=== PATIENT | female | born 1995 | race Caucasian/White ===

== ENCOUNTER → 2019-10-02 12:48 | Outpatient (BNVA) | payer SELFPAY | PROVIDERS: Visit Provider Emergency Medicine | DX: J11.1 Influenza due to unidentified influenza virus with other respiratory manifestations (principal); R11.0 Nausea; Z20.818 Contact with and (suspected) exposure to other bacterial communicable diseases | CPT/HCPCS: 87804 ==

== ENCOUNTER 2019-10-24 22:41 | Inpatient (IN) | payer SELFPAY ==
[2019-10-24 22:47] VITALS: BMI 40.3
[2019-10-24 22:50] VITALS: BP 135/81; PULSE 96; RESP 18; TEMP 36.6; O2SAT 96
[2019-10-25 06:00] VITALS: BP 120/79; PULSE 84; RESP 19; TEMP 36.8; O2SAT 98
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
[2019-10-25 14:00] VITALS: BP 100/69; PULSE 66; RESP 18; TEMP 37.2; O2SAT 100
[2019-10-25 22:00] VITALS: BP 106/65; PULSE 81; RESP 18; TEMP 36.6; O2SAT 98
[2019-10-26 06:00] VITALS: BP 113/74; PULSE 76; RESP 19; TEMP 36.6; O2SAT 99
--- NOTE | 2019-10-26 12:14 | PM.NPN ---
Subjective NPU Subjective: Interval history: Stacy presents continuing to be resistant to medication and reporting that she just wants to make sure that she is all right before she is discharged. We discussed the risks benefits and alternatives of SSRIs and other medications for anxiety and she understood and agreed to proceed as is documented in this note specifically continuing to be resistant to a medication trial. Mental Status Exam MSE Comments: This is an obese white female with adequate dress, grooming and eye contact. No abnormal movements except for psychomotor retardation. Cooperative with exam in no acute distress. Speech was more normal rate and volume. Mood described as a little better, affect subdued. Thought process organized. Thought content: Patient denied any suicidal or homicidal ideations, there were no delusions noted but she endorsed paranoia which was decreasing, she endorsed occasional auditory visual hallucinations. Attention and concentration were intact and memory appeared reliable but none were formally tested. She is alert and oriented x3. Insight and judgment are limited. Vitals/I&O/Wt Last Vital Signs Temp 97.8 F 10/26/19 06:00 Pulse 76 10/26/19 06:00 Resp 19 H 10/26/19 06:00 BP 113/74 10/26/19 06:00 Pulse Ox 99 10/26/19 06:00 Weight last 48 hrs Weight 73.028 kg A&P Additional A&P Information (1) Major depressive disorder: This is a 24-year-old white female with a long history of mental health issues and trauma who presents with reports of worsening depression and anxiety and suicidal thoughts who presents resistant to medication at this time. 1. Continue current medications. 2. Recommend considering as needed medication for anxiety like Inderal. 3. Recommend Lamictal or possible SSRI. 4. Encouraged individual, group and milieu therapy. 5. Continue every 15 minute checks for safety. (2) Borderline personality disorder: (3) Posttraumatic stress disorder: Involuntary Hold Information 96 Hour Hold: 96 Hour Involuntary Admission: No Attestations NPU Medical Necessity Statement*: Inpatient hospitalization is medically necessary and the clinically appropriate intervention at this time. We will offer medications as indicated and adjust as necessary. Likely length of stay 1 to 3 days. 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
[2019-10-26 14:00] VITALS: BP 116/78; PULSE 76; RESP 18; TEMP 36.6; O2SAT 96
--- NOTE | 2019-10-26 20:15 | PC.NURSE ---
Pt offered a prn trazodone, pt refused. pt stated i refuse to take any medications, i told you all that. I'm not here to take medication, i'm here to see Dr Dallas Haynes, he'll give me what i want!
[2019-10-26 20:58] VITALS: BP 129/89; PULSE 83; RESP 22; TEMP 36.7; O2SAT 100
[2019-10-27 06:00] VITALS: BP 100/61; PULSE 86; RESP 16; TEMP 36.6; O2SAT 98
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
[2019-10-27 13:06] VITALS: BP 100/61; PULSE 86; RESP 16; TEMP 36.6; O2SAT 98
== END 2019-10-27 13:55 | disposition home or self-care (01) | DRG 880 ==
PROVIDERS: Admitting Provider Psychiatry & Neurology Psychiatry; Visit Provider Psychiatry & Neurology Psychiatry
DX: F41.8 Other specified anxiety disorders (principal); R45.851 Suicidal ideations; Z91.5 Personal history of self-harm; F60.3 Borderline personality disorder; F43.11 Post-traumatic stress disorder, acute
CPT/HCPCS: 12345

== ENCOUNTER → 2020-04-18 13:44 | Outpatient (BNVA) | payer OTHER, SELFPAY | PROVIDERS: Visit Provider Emergency Medicine | DX: Z20.828 Contact with and (suspected) exposure to other viral communicable diseases (principal); R68.89 Other general symptoms and signs | CPT/HCPCS: 87635 ==

== ENCOUNTER → 2020-05-29 15:32 | Outpatient (BNVA) | payer SELFPAY | PROVIDERS: Visit Provider Emergency Medicine | DX: N92.6 Irregular menstruation, unspecified (principal); Z32.01 Encounter for pregnancy test, result positive | CPT/HCPCS: 81025 ==

== ENCOUNTER 2020-07-18 11:34 | Emergency (ER) | payer MEDICAID, SELFPAY ==
[2020-07-18 11:47] VITALS: BP 124/75; PULSE 91; RESP 14; TEMP 36.9; O2SAT 98; BMI 41.5
--- NOTE | 2020-07-18 11:52 | W.ED.DIZZY ---
HPI - Dizziness General: Chief Complaint: Dizziness Stated Complaint: dizziness Time Seen by Provider: 07/18/20 11:37 Source: patient and EMS Mode of arrival: EMS Limitations: no limitations History of Present Illness: HPI Narrative: 25-year-old female is currently 13 weeks states that she has been having vertigo over the last 3 to 4 days. States is much worse with sudden movements and when she tries to walk. States she does have some nausea with it. Denies any vomiting. She denies any headache. Patient denies any complaints denies any abdominal pain or bleeding. She states that it is improved with rest. Associated symptoms: Reports nausea; Denies chest pain, chills, headache(s) or vomiting Review of Systems Const: Denies: fever(s), chills, body aches or change in appetite Eyes: Denies: blurry vision or eye discomfort ENMT: Denies: throat pain or dental pain Card: Denies: chest pain Resp: Denies: dyspnea GI: Reports: nausea; Denies: abdominal pain, vomiting or diarrhea : Denies: dysuria Musc: Denies: neck pain or back pain Skin/Breast: Denies: rash Neuro: Reports: dizziness; Denies: headache(s) Psych: Denies: depression Bernard/Lymph: Denies: easy bruising All/Imm: Denies: urticaria PFSH ED PFSH: Social History Smoking and tobacco status: never smoked Second hand smoke exposure: No Alcohol intake: current Alcohol intake frequency: holidays/special occasions only Desire information about alcohol rehabilitation?: No History of recent travel: No Female Reproductive History: Date of last menstrual period: 10/08/19 Physical Exam Const: COMMON NORMALS: no acute distress, patient oriented x3 and healthy appearing HENMT: COMMON NORMALS: normocephalic and atraumatic HEAD & SCALP: normocephalic and atraumatic Eye: COMMON NORMALS: Equal, round and reactive pupils present and EOMs intact bilaterally PUPIL: Yes Equal, round and reactive pupils present Neck/C-Spine: COMMON NORMALS: full ROM and supple Chest: COMMONS NORMALS: normal inspection of the chest and normal palpation of entire chest wall Resp: COMMON NORMALS: normal respiratory effort, No retractions, No use of accessory muscles and clear to auscultation bilaterally AUSCULTATION: clear to auscultation bilaterally Cardio: COMMON NORMALS: regular rate, regular rhythm and No murmurs present (Cardio) RATE: regular rate RHYTHM: regular rhythm GI: COMMON NORMALS: Normal to inspection, nondistended, normoactive bowel sounds present, Soft to palpation, non-tender and no masses PALPATION: Yes Soft to palpation Extremity: COMMON NORMALS: normal to inspection and full ROM Neuro: COMMON NORMALS: patient oriented x3, moves all extremities and no focal motor deficits Psych: COMMON NORMALS: mental status grossly normal, Normal thought process present and cooperative THOUGHT PROCESS: Normal thought process present Skin: COMMON NORMALS: no rashes or lesions noted and no wounds GENERAL SKIN EXAM: no rashes or lesions noted Course Vital Signs: Vital signs: Vital Signs Temperature 98.4 F 07/18/20 11:47 Pulse Rate 68 07/18/20 12:43 Respiratory Rate 16 07/18/20 12:43 Blood Pressure 157/89 07/18/20 12:43 Pulse Oximetry 95 07/18/20 12:43 MDM - Dizziness MDM Narrative: Medical decision making narrative: Patient presents here with vertigo is likely peripheral in nature. She feels improved after nausea meds and meclizine. Patient's blood work is normal. She is stable for discharge will place her on meclizine along with Zofran. She is to follow-up with OB and return if worsening. She understands and agrees to plan. I did a negative bedside ultrasound that did show an IUP consistent with dates with heart rate of 154. Lab Data: Labs: Lab Results 07/18/20 07/18/20 07/18/20 Range/Units 12:11 12:11 12:17 WBC 9.6 (4.0-10.0) 10^3/ uL RBC 4.68 (4.1-5.3) 10^6/u L Hgb 12.9 (11.5-15.3) g/dL Hct 40.0 (37.0-47.0) % MCV 85.5 (81-99) fL MCH 27.6 L (28.0-34.0) pg MCHC 32.3 (30.0-36.0) g/dL RDW 14.1 (12.1-15.1) % Plt Count 230 (130-400) 10^3/c mm MPV 10.4 (7.4-10.4) fL Neut % (Auto) 76.6 % Lymph % (Auto) 17.2 % [place] % (Auto) 4.9 % Eos % (Auto) 0.7 % Baso % (Auto) 0.4 % Neut # (Auto) 7.37 (1.8-7.7) 10^3/u L Lymph # (Auto) 1.7 (0.8-4.8) 10^3/u L [place] # (Auto) 0.5 (0.2-0.9) 10^3/u L Eos # (Auto) 0.1 (0.0-0.8) 10^3/u L Baso # (Auto) 0.0 (0.0-0.1) 10^3/u L Nucleated RBC % (a uto) 0 % Nucleated RBCs # 0.0 /100WBC Sodium 138 (136-145) mmol/L Potassium 4.0 (3.5-5.1) mmol/L Chloride 104 (98-107) mmol/L Carbon Dioxide 22 (22-29) mmol/L Anion Gap 16.0 (5-19) BUN 7 (6-20) mg/dL Creatinine 0.6 (0.5-0.9) mg/dL GFR Calculation 121.8 (90-130) mL/min Glucose 85 (65-115) mg/dL Calculated Osmolal ity 283 L (285-295) mOsm/k g Calcium 9.2 (8.5-10.5) mg/dL Total Bilirubin 0.4 (0.15-1.2) mg/dL AST 15 (0-32) U/L ALT 15 (0-33) U/L Alkaline Phosphata se 66 (35-105) IU/L Total Protein 7.2 (6.6-8.7) g/dL Albumin 3.9 (3.5-5.2) g/dL Globulin 3.3 (1.3-4.6) g/dL Urine Color Dark yellow (Yellow) Urine Appearance Clear (CLEAR) Urine pH 5 (5-7) Ur Specific Gravit y 1.025 (1.005-1.030) Urine Protein Neg (Negative) Urine Glucose (UA) Norm (Normal) Urine Ketones Negative (Negative) Urine Blood Neg (Negative) Urine Nitrate Negative (Negative) Urine Bilirubin Neg (Negative) Urine Urobilinogen Norm (Negative) mg/dL Ur Leukocyte Veronica ase Negative (Negative) Discharge Plan Discharge Patient Disposition: Home Clinical Impression: Dizziness, Vertigo Condition: Stable Prescriptions: New ondansetron 4 mg tablet,disintegrating 4 mg PO Q6H PRN (Reason: nausea and vomiting) Qty: 14 RF: 0 meclizine 25 mg tablet 25 mg PO TID PRN (Reason: dizziness) Qty: 20 RF: 0 No Action 27 mg iron- 0.8 mg Tablet 1 tab PO DAILY RF: 0 Discharge Orders: Discharge ED (Routine); Ordered 07/18/20 Ordered By: Sarina Bravo Discharge Diet: Advance as tolerated Discharge Activity: Resume usual activity Patient Instructions: Vertigo (ED) Coding Level of Care Code ED Ophthalmic Nurse for Sim Fwd Exam Comprehensive
[2020-07-18] MEDS: meclizine 25 mg tablet 50 MG PO (12:03)
[2020-07-18] MEDS: sodium chloride 0.9% 1,000 ML 999 ML IV (12:27)
[2020-07-18 12:28] LABS: Add Urine Microscopic? NO
[2020-07-18 12:28] LABS: Basophils % 0.4 %; Eosinophils # 0.1 10^3/uL (0.0-0.8); Eosinophils % 0.7 %; Hemoglobin 12.9 g/dL (11.5-15.3); Lymphocytes # 1.7 10^3/uL (0.8-4.8); Lymphocytes % 17.2 %; Mean Corpuscular HGB Conc 32.3 g/dL (30.0-36.0); Mean Corpuscular Hemoglobin 27.6 pg (28.0-34.0); Mean Corpuscular Volume 85.5 fL (81-99); Mean Platelet Volume 10.4 fL (7.4-10.4); Monocytes # 0.5 10^3/uL (0.2-0.9); Monocytes % 4.9 %; Neutrophils # 7.37 10^3/uL (1.8-7.7); Neutrophils % 76.6 %; Nucleated Red Blood Cells % 0 %; Platelet Count 230 10^3/cmm (130-400); Red Blood Count 4.68 10^6/uL (4.1-5.3); Red Cell Distribution Width 14.1 % (12.1-15.1); White Blood Count 9.6 10^3/uL (4.0-10.0)
[2020-07-18 12:38] LABS: Bilirubin Urine Neg (Negative); Blood Urine Neg (Negative); Glucose Urine UA Norm (Normal); Ketones Urine Negative (Negative); Leukocyte Esterase Urine Negative (Negative); Nitrate Urine Negative (Negative); Protein Urine Neg (Negative); Specific Gravity, Urine 1.025 (1.005-1.030); Urine Appearance Clear (CLEAR); Urine Color Dark Yellow (Yellow); Urobilinogen Urine Norm (Negative); pH Urine 5 (5-7)
[2020-07-18 12:43] VITALS: BP 157/89; PULSE 68; RESP 16; O2SAT 95
[2020-07-18 12:58] LABS: Alanine Aminotransferase 15 U/L (0-33); Albumin Level 3.9 g/dL (3.5-5.2); Alkaline Phosphatase 66 IU/L (35-105); Aspartate Amino Transferase 15 U/L (0-32); Blood Urea Nitrogen 7 mg/dL (6-20); Calcium 9.2 mg/dL (8.5-10.5); Carbon Dioxide 22 mmol/L (22-29); Chloride 104 mmol/L (98-107); Globulin 3.3 g/dL (1.3-4.6); Glomerular Filtration Rate 121.8 mL/min (90-130); Glucose 85 mg/dL (65-115); Osmolality Calculated 283 mOsm/kg (285-295); Sodium 138 mmol/L (136-145); Total Bilirubin 0.4 mg/dL (0.15-1.2); Total Protein 7.2 g/dL (6.6-8.7)
[2020-07-18 13:44] VITALS: BP 122/74; PULSE 87; RESP 20; O2SAT 98
== END 2020-07-18 13:45 | disposition home or self-care (01) ==
PROVIDERS: Emergency Provider Emergency Medicine
DX: R42 Dizziness and giddiness (principal)
CPT/HCPCS: 12345; 80053; 81003; 85025; 96360; 99283; J7030; J8597

== ENCOUNTER 2022-05-05 05:59 | Emergency (ER) | payer MEDICAID, SELFPAY ==
[2022-05-05 06:04] VITALS: PULSE 86; RESP 16; TEMP 36.3; O2SAT 97
--- NOTE | 2022-05-05 06:18 | CTR_ITS ---
PROCEDURE INFORMATION: Exam: CT Abdomen And Pelvis With Contrast Exam date and time: 05/05/2022 7:00 AM Age: 26 years old Clinical indication: Abdominal pain; Generalized; Prior surgery; Surgery date: 6+ months; Surgery type: C section; Additional info: Severe generalized abdominal pain TECHNIQUE: Imaging protocol: Computed tomography of the abdomen and pelvis with contrast. Radiation optimization: All CT scans at this facility use at least one of these dose optimization techniques: automated exposure control; mA and/or kV adjustment per patient size (includes targeted exams where dose is matched to clinical indication); or iterative reconstruction. Contrast material: OMNI 350; Contrast volume: 100 ml; Contrast route: INTRAVENOUS (IV); COMPARISON: No relevant prior studies available. RADIATION DOSE METRICS: Total DLP (mGy-cm): 1232.54 FINDINGS: Liver: Area of hypoattenuation along the anterior margin of the liver adjacent to the falciform ligament consistent with focal fatty infiltration. The liver is normal in size and contour. Gallbladder and bile ducts: The gallbladder is distended with normal wall thickness and does not demonstrate calcified gallstones. No intra- or extra-hepatic biliary ductal dilatation. Pancreas: The pancreas appears normal. Spleen: Small splenule noted. The spleen appears unremarkable. Adrenal glands: The adrenals appear normal. Kidneys and ureters: The kidneys enhance symmetrically and empty into non-dilated ureters. Stomach and bowel: The stomach is unremarkable. The small bowel loops are not abnormally dilated. The large bowel loops are not abnormally dilated. Appendix: The appendix appears normal. Intraperitoneal space: No ascites or significant fluid collection. Vasculature: The aorta is nonaneurysmal. The IVC appears normal. Lymph nodes: There are no enlarged lymph nodes. Urinary bladder: The urinary bladder is not well distended, therefore not well evaluated. Reproductive: Unremarkable as visualized. Bones/joints: Unremarkable. Soft tissues: Unremarkable. CT/CT abdomen pelvis w con* [id number] IMPRESSION: No acute abdominopelvic abnormality identified.
[2022-05-05 06:24] LABS: Basophils # 0.1 10^3/uL (0.0-0.1); Basophils % 0.5 %; Eosinophils # 0.1 10^3/uL (0.0-0.8); Eosinophils % 1.2 %; Hematocrit 38.9 % (37.0-47.0); Hemoglobin 11.9 g/dL (11.5-15.3); Lymphocytes % 26.6 %; Mean Corpuscular HGB Conc 30.6 g/dL (30.0-36.0); Mean Corpuscular Hemoglobin 24.6 pg (28.0-34.0); Mean Corpuscular Volume 80.5 fl (81-99); Mean Platelet Volume 10.7 fL (7.4-10.4); Monocytes # 0.8 10^3/uL (0.2-0.9); Monocytes % 6.9 %; Neutrophils # 7.34 10^3/uL (1.8-7.7); Neutrophils % 64.5 %; Nucleated Red Blood Cells % 0 %; Platelet Count 296 10^3/cmm (130-400); Red Blood Count 4.83 10^6/uL (4.1-5.3); Red Cell Distribution Width 14.6 % (12.1-15.1); White Blood Count 11.4 10^3/uL (4.0-10.0)
[2022-05-05 06:33] LABS: HCG Qualitative Urine. Negative (Negative)
[2022-05-05 06:42] VITALS: BP 128/77; PULSE 87; RESP 18; O2SAT 100
[2022-05-05] MEDS: lidocaine 2% viscous 15 ML, aluminum-mag hydrox-simethicon 30 ML, sucralfate oral liq 1 GM PO (06:45)
[2022-05-05 07:00] LABS: Bilirubin Urine Neg (Negative); Blood Urine Neg (Negative); Glucose Urine UA Norm (Normal); Ketones Urine Negative (Negative); Leukocyte Esterase Urine Negative (Negative); Nitrate Urine Negative (Negative); Protein Urine Neg (Negative); Urine Appearance SL Hazy (CLEAR); Urine Color Yellow (Yellow); Urobilinogen Urine Norm (Negative); pH Urine 5 (5-7)
[2022-05-05 07:01] LABS: Add Urine Microscopic? YES; Bacteria Urine 2+ /hpf; Mucus Urine TRACE /hpf; RBC Urine RARE /hpf (0-2); WBC Urine RARE /hpf (0-5)
[2022-05-05 07:02] LABS: Add Urine Culture? No
[2022-05-05 07:11] LABS: Alanine Aminotransferase 17 U/L (0-33); Albumin Level 3.9 g/dL (3.5-5.2); Alkaline Phosphatase 118 U/L (35-105); Anion Gap 10.9 (5-19); Aspartate Amino Transferase 17 U/L (0-32); Blood Urea Nitrogen 12 mg/dL (6-20); Calcium 9.1 mg/dL (8.5-10.5); Carbon Dioxide 26 mmol/L (22-29); Chloride 100 mmol/L (98-107); Globulin 3.3 g/dL (1.3-4.6); Glomerular Filtration Rate 86.7 mL/min (90-130); Glucose 98 mg/dL (65-115); Lipase 12 U/L (13-60); Osmolality Calculated 276 mOsm/kg (285-295); Potassium 3.9 mmol/L (3.5-5.1); Sodium 133 mmol/L (136-145); Total Bilirubin 0.4 mg/dL (0.15-1.2); Total Protein 7.2 g/dL (6.6-8.7)
[2022-05-05] MEDS: iohexol 350 mg/mL 100 mL Btl IV (07:14)
[2022-05-05 07:56] VITALS: BP 109/61; PULSE 88; RESP 16; O2SAT 96
--- NOTE | 2022-05-05 08:19 | W.ED.ABDPA2 ---
HPI - Abdominal Pain General: Chief Complaint: Abdominal Pain Stated Complaint: abd pain Time Seen by Provider: 05/05/22 06:00 History of Present Illness: 26-year-old female presenting today with acute on chronic abdominal pain. Patient notes that she has had abdominal pain for almost 2 months. Comes and goes. Notes pain is severe when it comes on. 10 out of 10. Has been seen at least 2-3 times at [facility] for the same. Now presenting to this facility. Has seen no primary care doctor. No gastroenterology follow-up. She denies nausea or vomiting. She denies diarrhea. She does note severe pain. Does not believe she is . No vaginal bleeding or vaginal discharge. No dysuria or polyuria. She notes that she was recently diagnosed with a UTI and finished antibiotics. Related Data: Date of Last Menstrual Period: 10/08/19 Review of Systems General: Reports: 10 or more systems reviewed and unremarkable except in HPI and below PFSH ED PFSH: Social History Smoking and tobacco status: never smoked Second hand smoke exposure: No Alcohol intake: current Alcohol intake frequency: holidays/special occasions only Desire information about alcohol rehabilitation?: No History of recent travel: No Female Reproductive History: Date of last menstrual period: 10/08/19 Physical Exam Const: COMMON NORMALS: no acute distress, patient oriented x3 and alert GENERAL APPEARANCE: cooperative ORIENTATION/CONSCIOUSNESS: Yes awake, Yes oriented to person, Yes oriented to place and Yes oriented to time HENMT: COMMON NORMALS: normocephalic, atraumatic, external ears normal, Normal external nose present and moist oral mucous membranes HEAD & SCALP: normal to inspection, normocephalic and atraumatic NOSE: Normal external nose present GENERAL EAR: hearing grossly impaired EXTERNAL EAR: Yes external ears normal Eye: COMMON NORMALS: Equal, round and reactive pupils present, EOMs intact bilaterally, conjunctivae normal and no scleral icterus GENERAL EYE: appearance normal, both eyes and all related structures EYELID: eyelids normal CONJUNCTIVA: Yes conjunctivae normal SCLERA: sclerae normal PUPIL: Yes Equal, round and reactive pupils present Neck/C-Spine: COMMON NORMALS: full ROM, supple and no JVD GENERAL: Yes normal visual inspection Lymph: LYMPHATIC: no lymphadenopathy noted and no lymphedema noted Chest: COMMONS NORMALS: normal inspection of the chest Resp: COMMON NORMALS: normal respiratory effort, No retractions and No use of accessory muscles Cardio: COMMON NORMALS: no JVD, regular rate and regular rhythm RATE: regular rate RHYTHM: regular rhythm GI: COMMON NORMALS: Normal to inspection, nondistended, normoactive bowel sounds present (Diffuse tenderness on exam.) and Soft to palpation PALPATION: Yes Soft to palpation : COMMON NORMALS: Yes no CVA tenderness BLADDER/KIDNEY EXAM: Yes no CVA tenderness Back/Pelvis: COMMON NORMALS: no CVA tenderness and thoracic and lumbar spine normal to inspection Extremity: COMMON NORMALS: normal to inspection, full ROM and capillary refill normal GENERAL: Yes normal exam except as noted Neuro: COMMON NORMALS: patient oriented x3, CN's II-XII intact bilaterally, moves all extremities, no focal motor deficits, no sensory deficits noted and gait normal SENSORIUM/ORIENTATION: Yes alert, Yes oriented to person, Yes oriented to place and Yes oriented to time Psych: COMMON NORMALS: mental status grossly normal, Normal thought process present, cooperative and normal affect THOUGHT PROCESS: Normal thought process present Skin: COMMON NORMALS: no rashes or lesions noted and no wounds GENERAL SKIN EXAM: no rashes or lesions noted Course Vital Signs: Vital signs: Vital Signs Temperature 97.3 F L 05/05/22 06:04 Pulse Rate 56 L 05/05/22 08:22 Respiratory Rate 16 05/05/22 08:22 Blood Pressure 119/82 05/05/22 08:22 Pulse Oximetry 99 05/05/22 08:22 Oxygen Delivery Me thod 05/05/22 08:22 MDM - Abdominal Pain Medical Decision Making 26-year-old female presenting with acute on chronic abdominal pain. CBC with leukocytosis. Urinalysis is unremarkable. hCG is negative. We will proceed with CT abdomen pelvis. CT without acute abnormality. CMP is unremarkable. Recommended patient follow-up with primary care physician for consideration of a chronic abdominal pain. Patient was given strict return precautions and recommended routine outpatient follow-up. Lab Data : 05/05/22 06:08 05/05/22 06:40 Labs/Radiology: Radiology Impressions Abdomen/Pelvis CT 05/05/22 06:18 IMPRESSION: No acute abdominopelvic abnormality identified. Laboratory Results WBC 11.4 10^3/uL (4.0-10.0) H 05/05/22 06:08 RBC 4.83 10^6/uL (4.1-5.3) 05/05/22 06:08 Hgb 11.9 g/dL (11.5-15.3) 05/05/22 06:08 Hct 38.9 % (37.0-47.0) 05/05/22 06:08 MCV 80.5 fl (81-99) L 05/05/22 06:08 MCH 24.6 pg (28.0-34.0) L 05/05/22 06:08 MCHC 30.6 g/dL (30.0-36.0) 05/05/22 06:08 RDW 14.6 % (12.1-15.1) 05/05/22 06:08 Plt Count 296 10^3/cmm (130-400) 05/05/22 06:08 MPV 10.7 fL (7.4-10.4) H 05/05/22 06:08 Neut % (Auto) 64.5 % 05/05/22 06:08 Lymph % (Auto) 26.6 % 05/05/22 06:08 [place] % (Auto) 6.9 % 05/05/22 06:08 Eos % (Auto) 1.2 % 05/05/22 06:08 Baso % (Auto) 0.5 % 05/05/22 06:08 Neut # (Auto) 7.34 10^3/uL (1.8-7.7) 05/05/22 06:08 Lymph # (Auto) 3.0 10^3/uL (0.8-4.8) 05/05/22 06:08 [place] # (Auto) 0.8 10^3/uL (0.2-0.9) 05/05/22 06:08 Eos # (Auto) 0.1 10^3/uL (0.0-0.8) 05/05/22 06:08 Baso # (Auto) 0.1 10^3/uL (0.0-0.1) 05/05/22 06:08 Nucleated RBC % (auto) 0 % 05/05/22 06:08 Nucleated RBCs # 0.0 /100WBC 05/05/22 06:08 Sodium 133 mmol/L (136-145) L 05/05/22 06:40 Potassium 3.9 mmol/L (3.5-5.1) 05/05/22 06:40 Chloride 100 mmol/L (98-107) 05/05/22 06:40 Carbon Dioxide 26 mmol/L (22-29) 05/05/22 06:40 Anion Gap 10.9 (5-19) 05/05/22 06:40 BUN 12 mg/dL (6-20) 05/05/22 06:40 Creatinine 0.8 mg/dL (0.5-0.9) 05/05/22 06:40 GFR Calculation 86.7 mL/min (90-130) L 05/05/22 06:40 Glucose 98 mg/dL (65-115) 05/05/22 06:40 Calculated Osmolality 276 mOsm/kg (285-295) L 05/05/22 06:40 Calcium 9.1 mg/dL (8.5-10.5) 05/05/22 06:40 Total Bilirubin 0.4 mg/dL (0.15-1.2) 05/05/22 06:40 AST 17 U/L (0-32) 05/05/22 06:40 ALT 17 U/L (0-33) 05/05/22 06:40 Alkaline Phosphatase 118 U/L (35-105) H 05/05/22 06:40 Total Protein 7.2 g/dL (6.6-8.7) 05/05/22 06:40 Albumin 3.9 g/dL (3.5-5.2) 05/05/22 06:40 Globulin 3.3 g/dL (1.3-4.6) 05/05/22 06:40 Lipase 12 U/L (13-60) L 05/05/22 06:40 HCG, Qual Negative (Negative) 05/05/22 06:08 Urine Color Yellow (Yellow) 05/05/22 06:08 Urine Appearance Sl hazy (CLEAR) A 05/05/22 06:08 Urine pH 5 (5-7) 05/05/22 06:08 Ur Specific [place] 1.030 (1.005-1.030) 05/05/22 06:08 Urine Protein Neg (Negative) 05/05/22 06:08 Urine Glucose (UA) Norm (Normal) 05/05/22 06:08 Urine Ketones Negative (Negative) 05/05/22 06:08 Urine Blood Neg (Negative) 05/05/22 06:08 Urine Nitrate Negative (Negative) 05/05/22 06:08 Urine Bilirubin Neg (Negative) 05/05/22 06:08 Urine Urobilinogen Norm mg/dL (Negative) 05/05/22 06:08 Ur Leukocyte Esterase Negative (Negative) 05/05/22 06:08 Urine RBC Rare /hpf (0-2) 05/05/22 06:08 Urine WBC Rare /hpf (0-5) 05/05/22 06:08 Ur Squamous Epith Cells 5-10 /hpf (0-5) H 05/05/22 06:08 Amorphous Sediment Not Reportable 05/05/22 06:08 Urine Bacteria 2+ /hpf (NONE) H 05/05/22 06:08 Urine Mucus Trace /hpf 05/05/22 06:08 Discharge Plan Discharge Patient Disposition: Home Clinical Impression: Abdominal pain Condition: Stable Prescriptions: New omeprazole 40 mg capsule,delayed release(DR/EC) 40 mg PO BID Qty: 30 0RF sucralfate [Carafate] 1 gram tablet 1 g PO TID 28 Days Qty: 84 0RF No Action 27 mg iron- 0.8 mg Tablet 1 tab PO DAILY ondansetron 4 mg tablet,disintegrating 4 mg PO Q6H PRN (Reason: nausea and vomiting) Qty: 14 0RF meclizine 25 mg tablet 25 mg PO TID PRN (Reason: dizziness) Qty: 20 0RF Discharge Orders: Discharge ED (Routine); Ordered 05/05/22 Ordered By: Sage Portillo Patient Instructions: Abdominal Pain (ED) Stand Alone Forms: Work/School Release Coding Level of Care Code ED Network Contract Manager for Chg Fwd Exam Comprehensive
[2022-05-05 08:22] VITALS: BP 119/82; PULSE 56; RESP 16; O2SAT 99
[2022-05-05 08:30] VITALS: BP 123/74; PULSE 80; RESP 15; O2SAT 100
== END 2022-05-05 09:01 | disposition home or self-care (01) ==
PROVIDERS: Emergency Provider Emergency Medicine
DX: R10.9 Unspecified abdominal pain (principal)
CPT/HCPCS: 36415; 74177; 80053; 81001; 81025; 83690; 85025; 99285; Q9967

== ENCOUNTER → 2022-09-04 14:52 | Outpatient (BNVA) | payer MEDICAID, SELFPAY | PROVIDERS: Visit Provider Obstetrics & Gynecology | DX: Z01.419 Encounter for gynecological examination (general) (routine) without abnormal findings (principal) | CPT/HCPCS: 88175 ==

== ENCOUNTER → 2022-09-18 15:08 | Outpatient (BNVA) | payer MEDICAID, SELFPAY | PROVIDERS: Visit Provider Obstetrics & Gynecology | DX: N93.9 Abnormal uterine and vaginal bleeding, unspecified (principal) | CPT/HCPCS: 76830 ==

== ENCOUNTER 2022-10-24 07:34 | Day surgery (SDC) | payer MEDICAID, SELFPAY ==
[2022-10-23 10:38] VITALS: BMI 45.9
[2022-10-24] VITALS (12 sets, daily range): BP systolic 123–152; BP diastolic 81–100; PULSE 62–105; RESP 14–18; TEMP 36.2–36.6; O2SAT 92–100
[2022-10-24] MEDS: sodium chloride 0.9% 1,000 ML 30 ML IV (08:05)
[2022-10-24] MEDS: acetaminophen 1,000 MG/100 ML PIGGYBACK 400 MG IV (08:06)
[2022-10-24] MEDS: scopolamine 1.5 Patch 1 PATCH TRANSDERMA (08:06)
[2022-10-24] MEDS: phenazopyridine 100 mg Tablet 200 MG PO (08:07)
[2022-10-24] MEDS: CELEcoxib 200 mg Capsule 400 MG PO (08:07)
[2022-10-24] MEDS: gabapentin 300 mg Capsule PO (08:07)
[2022-10-24 08:15] LABS: Basophils # 0.1 10^3/uL (0.0-0.1); Basophils % 0.5 %; Eosinophils # 0.2 10^3/uL (0.0-0.8); Eosinophils % 2.2 %; Hematocrit 37.4 % (37.0-47.0); Hemoglobin 11.8 g/dL (11.5-15.3); Lymphocytes # 2.5 10^3/uL (0.8-4.8); Lymphocytes % 24.4 %; Mean Corpuscular HGB Conc 31.6 g/dL (30.0-36.0); Mean Corpuscular Hemoglobin 25.1 pg (28.0-34.0); Mean Corpuscular Volume 79.6 fl (81-99); Mean Platelet Volume 10.4 fL (7.4-10.4); Monocytes # 0.5 10^3/uL (0.2-0.9); Monocytes % 4.8 %; Neutrophils # 7.07 10^3/uL (1.8-7.7); Neutrophils % 67.9 %; Nucleated Red Blood Cells % 0 %; Platelet Count 288 10^3/cmm (130-400); Red Cell Distribution Width 14.6 % (12.1-15.1); White Blood Count 10.4 10^3/uL (4.0-10.0)
[2022-10-24 08:36] LABS: Anion Gap 15.3 (5-19); Blood Urea Nitrogen 14 mg/dL (6-20); Calcium 8.5 mg/dL (8.5-10.5); Carbon Dioxide 19 mmol/L (22-29); Chloride 109 mmol/L (98-107); Glomerular Filtration Rate 119.9 mL/min (90-130); Glucose 92 mg/dL (65-115); Osmolality Calculated 288 mOsm/kg (285-295); Potassium 4.3 mmol/L (3.5-5.1); Sodium 139 mmol/L (136-145)
--- NOTE | 2022-10-24 08:36 | ANES.PREANE2 ---
Pre-Anesthetic Assessment Height/Weight: Height 1.65 m Weight 125.191 kg Temp Pulse Resp BP Pulse Ox O2 Del Method 97.4 F L 105 H 18 123/85 96 10/24/22 08:00 10/24/22 08:00 10/24/22 08:00 10/24/22 08:00 10/24/22 08:00 10/24/22 08:01 Preop Diagnosis: AUB, pelvic pain,dyspareunia Operation Date: 10/24/22 09:15 Proposed Procedures p Hysteroscopy, dilation and curettage with Myosure [id number], Diagnostic laparoscopy with removal of adhesions 95469, 33326,N93.9,R10.2(Not Applicable) - Leticia Garcia MD s Dilation And Curettage (D&C)(Not Applicable) - Leticia Garcia MD s Laparoscopy Diagnostic(Not Applicable) - Leticia Garcia MD Familial anesthetic complications: None Was Beta Khari taken within 24 hours: N/A Was Clonidine taken within 24 hours: N/A Last intake: Intake Last Liquid Date 10/23/22 Last Liquid Time 22:30 Last Solid Date 10/23/22 Last Solid Time 22:30 Social No alcohol and No tobacco marijuana use 2days ago Exam alert, oriented x 3, clear to auscultation bilaterally and regular rate & rhythm Airway Mallampati: Class II Dentition: full Metabolic Morbid Obesity Neuropsych Anxiety and Depression Anesthetic Plan ASA status: 2 Anesthesia: General Other: Indigestion last night at 10 pm, states mostly resolved but stomach still feels a little hard and im still gassy. Consider RSI if still having symptoms before induction Risk of > 500 ml blood loss (7ml/kg in children): No Medications/Allergies Home Medications Medication Instructions Recorded Confirmed Last Taken Type naproxen sodium 750 mg 750 mg PO BID 10/23/22 10/23/22 10/22/22 History tablet,extended release 24 hr mphase Allergies Allergy/AdvReac Type Severity Reaction Status Date / Time No Known Allergies Allergy Verified 10/24/22 07:49 Current Medications Generic Name Dose Route Start Last Admin Trade Name Freq PRN Reason Stop Dose Admin Sodium Chloride 1,000 mls @ 30 mls/hr 10/24/22 07:00 10/24/22 08:05 Sodium Chloride 0.9% IV 10/25/22 06:59 30 mls/hr .Q24H NELLY Administration PFSH Anesthesia Surgical History History of 2020- Family History Grandmother Breast cancer maternal Heart disease maternal Stroke maternal Mother Diabetes Heart disease Hypertension Other Psychiatric illness Denies family history of Colon cancer Ovarian cancer Hypercholesteremia Uterine cancer Thyroid disease Female Reproductive History Date of last menstrual period: 09/29/22 Data Anesthesia 10/24/22 08:03 10/24/22 08:03 Short CBC 10/24/22 Range/Units 08:03 WBC 10.4 H (4.0-10.0) 10^3/uL Hgb 11.8 (11.5-15.3) g/dL Hct 37.4 (37.0-47.0) % MCV 79.6 L (81-99) fl Plt Count 288 (130-400) 10^3/cmm Neut % (Auto) 67.9 % Neut # (Auto) 7.07 (1.8-7.7) 10^3/uL Cardiac Studies: No Data to Display
[2022-10-24] MEDS: midazolam 1 mg/mL INJ 2 mL 2 MG IVP (08:38)
--- NOTE | 2022-10-24 09:08 | W.PM.OPSUD ---
Surgery/Procedure H&P Update DATE OF PROCEDURE: October 24, 2022 DATE H&P PERFORMED: 10/19/22 H&P UPDATE INFORMATION: I have reviewed H&P completed within last 30 days, I have examined patient prior to procedure and No changes to prior documentation PREOP DIAGNOSIS: AUB, pelvic pain,dyspareunia PLANNED PROCEDURE: Operation Date: 10/24/22 09:15 Proposed Procedures p Hysteroscopy, dilation and curettage with Myosure [id number], Diagnostic laparoscopy with removal of adhesions 18659, 39738,N93.9,R10.2(Not Applicable) - Leticia Garcia MD s Dilation And Curettage (D&C)(Not Applicable) - Leticia Garcia MD s Laparoscopy Diagnostic(Not Applicable) - Leticia Garcia MD Related Problem List Diagnoses (1) Irregular menses: (2) Dyspareunia: (3) Pelvic pain: (4) Abnormal uterine bleeding (AUB):
[2022-10-24] MEDS: ceFAZolin 2,000 MG in sodium chloride 0.9% (plus) 50 ML 100 MG IV (09:24)
[2022-10-24] MEDS: ceFAZolin 1,000 MG in sodium chloride 0.9% (plus) 50 ML 100 MG IV (09:50)
--- NOTE | 2022-10-24 10:41 | P.OP_ITS ---
Operative Report Date of procedure: October 24, 2022 Pre-op diagnosis: Preop Diagnosis AUB, pelvic pain,dyspareunia Post-op diagnosis: same Post-op findings: unable to perform laparoscopy due to limitations of equipment. Long trocar was not long enough to go intraperitonealy Procedure done: hysteroscopy, D&C, Myosure Skin incision only to place trocar and unable to perform laparoscopy Specimens removed/disposition: endometrial curettings to pathology Surgeon: Leticia Garcia Anesthesia: General Estimated blood loss (mL): 2 IV fluids (mL): 700 Urine output (mL): 100 Complications: none. Findings: morbidly obese patient with posterior lesion of endometrium. Removed by hysteroscopy. unable to perform laparoscopy due to length of trocar and deepness of tissue Condition: stable Disposition: PACU Procedure: The patient was taken to the operating room where monitored anesthesia was administered and to be adequate. She was prepped and draped in the normal sterile fashion in the dorsal lithotomy position in [facility]. A weighted speculum was placed into the vagina and the anterior lip of the cervix grasped with a single-tooth tenaculum. A duran catheter was placed for the laparoscopy portion of the procedure. The uterus was sounded to 9 cm. The cervix was dilat ed to 16 [place]. The hysteroscope was advanced into the endometrial cavity. There was excessive tissue in the posterior visualized. The MyoSure device was activated and the tissue was removed. Pictures were taken pre and post procedure. The Zumi uterine manipulator was placed. The tenaculum and weighted speculum were removed. Attention was then turned to the laparoscopy portion of the procedure. The gloves were changed. The patient was short waisted and an infraumbilical incision was made. Using the long trocar sleeve, an attempt was made to place it intraperitoneally. I tried twice and could just visualized the fascia when it was fully placed. The trocar was not long enough. The procedure was abandoned due to not having the properly sized equipment to perform the surgery. She will need to be seen in a bariatric center where they have longer instruments. The single incision was closed with skin glue and injected with 4 ml of 0.25% marcaine. The patient tolerated the procedure well. Sponge lap and needle counts were correct x3. She was taken to the recovery room in stable condition.
[2022-10-24 10:43] LABS: OR HCG Qualitative Urine Negative (Negative)
[2022-10-24] MEDS: fentaNYL 50 mcg/mL INJ 2mL IVP (10:54)
--- NOTE | 2022-10-24 10:55 | PC.NURSE ---
Witnessed 50 mcg Fentanyl wasted by Yakelin Gary RN.
--- NOTE | 2022-10-24 10:58 | PM.DCS ---
Discharge Providers Date of Admission: 10/24/22 Date of Discharge: October 24, 2022 Attending Provider at Discharge: Leticia Garcia MD Primary Care Provider: PATRICE Ferrara Diagnoses at Discharge Discharge Diagnosis (1) Irregular menses: Status: Acute (2) Dyspareunia: Status: Acute (3) Pelvic pain: Status: Acute (4) Abnormal uterine bleeding (AUB): Status: Acute Reason for Visit Reason for Visit: N93.9, R10.2 Hospital Course Hospital Course The patient was admitted for surgery. She did well postoperatively and was ready for discharge. Discharge Data Studies Completed and Pending Pending at discharge Category Date Time Status Urine Culture Routine Lab 10/24/22 07:43 Uncollected Laboratory Results WBC 10.4 10^3/uL (4.0-10.0) H 10/24/22 08:03 RBC 4.70 10^6/uL (4.1-5.3) 10/24/22 08:03 Hgb 11.8 g/dL (11.5-15.3) 10/24/22 08:03 Hct 37.4 % (37.0-47.0) 10/24/22 08:03 MCV 79.6 fl (81-99) L 10/24/22 08:03 MCH 25.1 pg (28.0-34.0) L 10/24/22 08:03 MCHC 31.6 g/dL (30.0-36.0) 10/24/22 08:03 RDW 14.6 % (12.1-15.1) 10/24/22 08:03 Plt Count 288 10^3/cmm (130-400) 10/24/22 08:03 MPV 10.4 fL (7.4-10.4) 10/24/22 08:03 Neut % (Auto) 67.9 % 10/24/22 08:03 Lymph % (Auto) 24.4 % 10/24/22 08:03 [place] % (Auto) 4.8 % 10/24/22 08:03 Eos % (Auto) 2.2 % 10/24/22 08:03 Baso % (Auto) 0.5 % 10/24/22 08:03 Neut # (Auto) 7.07 10^3/uL (1.8-7.7) 10/24/22 08:03 Lymph # (Auto) 2.5 10^3/uL (0.8-4.8) 10/24/22 08:03 [place] # (Auto) 0.5 10^3/uL (0.2-0.9) 10/24/22 08:03 Eos # (Auto) 0.2 10^3/uL (0.0-0.8) 10/24/22 08:03 Baso # (Auto) 0.1 10^3/uL (0.0-0.1) 10/24/22 08:03 Nucleated RBC % (auto) 0 % 10/24/22 08:03 Nucleated RBCs # 0.0 /100WBC 10/24/22 08:03 Sodium 139 mmol/L (136-145) 10/24/22 08:03 Potassium 4.3 mmol/L (3.5-5.1) 10/24/22 08:03 Chloride 109 mmol/L (98-107) H 10/24/22 08:03 Carbon Dioxide 19 mmol/L (22-29) L 10/24/22 08:03 Anion Gap 15.3 (5-19) 10/24/22 08:03 BUN 14 mg/dL (6-20) 10/24/22 08:03 Creatinine 0.6 mg/dL (0.5-0.9) 10/24/22 08:03 GFR Calculation 119.9 mL/min (90-130) 10/24/22 08:03 Glucose 92 mg/dL (65-115) 10/24/22 08:03 Calculated Osmolality 288 mOsm/kg (285-295) 10/24/22 08:03 Calcium 8.5 mg/dL (8.5-10.5) 10/24/22 08:03 Urine HCG, Qual Negative (Negative) 10/24/22 07:47 Vitals Last Vital Signs Temp 97.4 F L 10/24/22 08:00 Pulse 105 H 10/24/22 08:00 Resp 18 10/24/22 08:00 BP 123/85 10/24/22 08:00 Pulse Ox 96 10/24/22 08:00 O2 Del Method 10/24/22 08:01 O2 Flow Rate 6 10/24/22 10:40 Discharge Plan Discharge Patient Disposition: Home Condition: Stable Prescriptions: New hydrocodone-acetaminophen 5-325 mg tablet 1 tab PO Q6H Qty: 10 0RF Continued naproxen sodium 750 mg tablet, ER multiphase 24 hr 750 mg PO BID Discharge Orders: Discharge Order (Routine); Ordered 10/24/22 Ordered By: Leticia Garcia Discharge Attestations Time Spent in Discharge Care*: less than 30 min Quality Metrics Clinical Quality Measures [ No reported AMI, CVA or VTE this stay] Coding Level of Care Code Acute Code for Chg Fwd Diagnoses Irregular menses N92.6 Dyspareunia Pelvic pain R10.2 Abnormal uterine bleeding (AUB) N93.9
[2022-10-24] MEDS: HYDROcodone-acetaminophen 5-325 mg Tablet 1 TAB PO (11:35)
--- NOTE | 2022-10-24 12:41 | ANE.PACU2 ---
Inpatient post-anesthesia follow up: Airway intact: Yes Vital signs: Temperature 97.9 F Pulse Rate 74 Respiratory Rate 18 Blood Pressure 145/91 Pulse Oximetry 100 Oxygen Delivery Me thod Room Air Oxygen Flow Rate 6 Fraction of Inspir ed Oxygen Hydration adequate: Yes Nausea and vomiting: No Pain level: 1 Mental status: Baseline
--- NOTE | 2022-10-24 16:49 | SUR.PHASEI ---
1645 50 mcg Fentanyl wasted and witnessed by Farrah Johnson RN. Pt was discharged and removed from pyxis and this nurse was unable to waste in pyxis.
== END 2022-10-24 12:15 | disposition home or self-care (01) ==
PROVIDERS: PCP Nurse Practitioner Family; Visit Provider Obstetrics & Gynecology
PROC: 0UDB8ZZ Extraction of Endometrium, Via Natural or Artificial Opening Endoscopic (ICD-10-PCS; CPT 58558; principal; 2022-10-24 09:15)
PROC: (CPT 58120; 2022-10-24 09:15)
PROC: (CPT 49320; 2022-10-24 09:15)
DX: N93.9 Abnormal uterine and vaginal bleeding, unspecified (principal); R10.2 Pelvic and perineal pain; N94.10 Unspecified dyspareunia; E66.01 Morbid (severe) obesity due to excess calories; Z68.42 Body mass index [BMI] 45.0-49.9, adult; N85.8 Other specified noninflammatory disorders of uterus; N92.6 Irregular menstruation, unspecified
CPT/HCPCS: 49320; 58558; 36415; 80048; 81025; 84703; 85025; 87086; 88305; J0131; J0330; J0690; J1100; J2250; J2405; J2704; J3010; J3490; J7030

== ENCOUNTER 2023-05-01 03:47 | Emergency (ER) | payer MEDICAID, SELFPAY ==
[2023-05-01 03:47] VITALS: BP 129/73; PULSE 89; RESP 18; TEMP 36.9; O2SAT 98; BMI 45.6
[2023-05-01 04:08] LABS: Basophils # 0.1 10^3/uL (0.0-0.1); Basophils % 0.4 %; Eosinophils # 0.2 10^3/uL (0.0-0.8); Eosinophils % 1.3 %; Hematocrit 37.7 % (36-47); Lymphocytes # 2.8 10^3/uL (0.8-4.8); Lymphocytes % 25.2 %; Mean Corpuscular HGB Conc 31.3 g/dL (30-55); Mean Corpuscular Hemoglobin 26.3 pg (27-33); Mean Corpuscular Volume 84.2 fl (85-98); Mean Platelet Volume 10.3 fL (7.4-10.4); Monocytes # 0.6 10^3/uL (0.2-0.9); Monocytes % 5.7 %; Neutrophils # 7.52 10^3/uL (1.8-7.7); Nucleated Red Blood Cells % 0 %; Platelet Count 242 10^3/cmm (157-399); Red Blood Count 4.48 10^6/uL (3.85-5.65); Red Cell Distribution Width 15.3 % (12.1-15.1); White Blood Count 11.23 10^3/uL (3.29-11.43)
--- NOTE | 2023-05-01 04:23 | ED_ITS ---
Documented by User: Rickey Lassiter DO 05/01/23 04:25 HPI - Abdominal Pain General: Chief Complaint: Abdominal Pain Stated Complaint: ABD PAIN Time Seen by Provider: 05/01/23 03:52 History of Present Illness: Patient presents to the ER with worsening abdominal pelvic pain. Patient is also having vaginal bleeding. Patient was seen at [facility] twice last week for similar episodes of pain. Patient stated she was with her hCG being 600 on 1 visit and 800 on the next visit she had ultrasounds done at that time. They told her she may have been miscarrying. Patient's had worsening cramps and pain and bleeding since then. Patient wants a second opinion after she got on the Internet and looked up miscarrying and it brought up tubal . Related Data: Date of Last Menstrual Period: 02/25/23 Review of Systems General: Reports: 10 or more systems reviewed and unremarkable except in HPI and below PFSH ED PFSH: Surgical History History of 2020- Family History Grandmother Breast cancer maternal Heart disease maternal Stroke maternal Mother Diabetes Heart disease Hypertension Other Psychiatric illness Denies family history of Colon cancer Ovarian cancer Hypercholesteremia Uterine cancer Thyroid disease Social History Substance/Drug Use: current Substance/Drug use frequency: Special occassions/opportunity only Female Reproductive History: Date of last menstrual period: 02/25/23 Physical Exam Const: COMMON NORMALS: no acute distress, average body habitus, patient oriented x3, no limitations, healthy appearing, alert and well nourished HENMT: COMMON NORMALS: normocephalic, atraumatic, hearing grossly normal bilaterally, external ears normal, Normal external nose present, moist oral mucous membranes and oropharynx normal HEAD & SCALP: normocephalic and atraumatic NOSE: Normal external nose present EXTERNAL EAR: Yes external ears normal Eye: COMMON NORMALS: Equal, round and reactive pupils present, EOMs intact bilaterally, conjunctivae normal and no scleral icterus CONJUNCTIVA: Yes conjunctivae normal PUPIL: Yes Equal, round and reactive pupils present Neck/C-Spine: COMMON NORMALS: full ROM, no lymphadenopathy, supple, no meningeal signs, no JVD and Thyroid normal THYROID: Thyroid normal Chest: COMMONS NORMALS: normal inspection of the chest and normal palpation of entire chest wall Resp: COMMON NORMALS: normal respiratory effort, No retractions, No use of accessory muscles and clear to auscultation bilaterally AUSCULTATION: clear to auscultation bilaterally Cardio: COMMON NORMALS: no JVD, regular rate, regular rhythm, S1 normal heart sound present, S2 normal heart sound present, No gallops present (Cardio), No clicks present (Cardio), No murmurs present (Cardio) and No rub (Cardio) RATE: regular rate RHYTHM: regular rhythm HEART SOUNDS: S1 normal heart sound present and S2 normal heart sound present GI: COMMON NORMALS: Normal to inspection, nondistended, normoactive bowel sounds present, Soft to palpation, No hepatosplenomegaly present and no masses; negative for non-tender (Tender to palpate suprapubically) PALPATION: Yes Soft to palpation and Yes No hepatosplenomegaly present Neuro: COMMON NORMALS: patient oriented x3 SENSORIUM/ORIENTATION: Yes alert MENINGEAL SIGNS: Yes no meningeal signs Course Vital Signs: Vital signs: Vital Signs Temperature 98.4 F 05/01/23 03:47 Pulse Rate 91 05/01/23 07:13 Respiratory Rate 16 05/01/23 07:13 Blood Pressure 100/58 05/01/23 07:13 Pulse Oximetry 98 05/01/23 07:13 Oxygen Delivery Me thod Room Air 05/01/23 03:47 MDM - Abdominal Pain Differential Diagnosis Likely abdominal pain; Unlikely acute appendicitis, calculus of kidney, constipation, diverticulitis, endometriosis, gastroenteritis, pancreatitis or small bowel obstruction Medical Records I reviewed the patient's medical records. Lab Data I reviewed the patient's lab results. 05/01/23 03:56 05/01/23 03:56 Labs/Radiology: Radiology Impressions Pelvic/Transvag US 05/01/23 04:31 IMPRESSION: 1. No visible intrauterine gestation. 2. Cannot exclude ectopic at this time. 3. Short interval follow-up indicated. 4. Negative for ovarian torsion. Laboratory Results WBC 11.23 10^3/uL (3.29-11.43) 05/01/23 03:56 RBC 4.48 10^6/uL (3.85-5.65) 05/01/23 03:56 Hgb 11.80 g/dL (11.27-16.99) 05/01/23 03:56 Hct 37.7 % (36-47) 05/01/23 03:56 MCV 84.2 fl (85-98) L 05/01/23 03:56 MCH 26.3 pg (27-33) L 05/01/23 03:56 MCHC 31.3 g/dL (30-55) 05/01/23 03:56 RDW 15.3 % (12.1-15.1) H 05/01/23 03:56 Plt Count 242 10^3/cmm (157-399) 05/01/23 03:56 MPV 10.3 fL (7.4-10.4) 05/01/23 03:56 Neut % (Auto) 67.0 % 05/01/23 03:56 Lymph % (Auto) 25.2 % 05/01/23 03:56 [place] % (Auto) 5.7 % 05/01/23 03:56 Eos % (Auto) 1.3 % 05/01/23 03:56 Baso % (Auto) 0.4 % 05/01/23 03:56 Neut # (Auto) 7.52 10^3/uL (1.8-7.7) 05/01/23 03:56 Lymph # (Auto) 2.8 10^3/uL (0.8-4.8) 05/01/23 03:56 [place] # (Auto) 0.6 10^3/uL (0.2-0.9) 05/01/23 03:56 Eos # (Auto) 0.2 10^3/uL (0.0-0.8) 05/01/23 03:56 Baso # (Auto) 0.1 10^3/uL (0.0-0.1) 05/01/23 03:56 Nucleated RBC % (auto) 0 % 05/01/23 03:56 Nucleated RBCs # 0.0 /100WBC 05/01/23 03:56 Sodium 137 mmol/L (136-145) 05/01/23 03:56 Potassium 3.8 mmol/L (3.5-5.1) 05/01/23 03:56 Chloride 103 mmol/L (98-107) 05/01/23 03:56 Carbon Dioxide 25 mmol/L (22-29) 05/01/23 03:56 Anion Gap 12.8 (5-19) 05/01/23 03:56 BUN 9 mg/dL (6-20) 05/01/23 03:56 Creatinine 0.8 mg/dL (0.5-0.9) 05/01/23 03:56 GFR Calculation 86.0 mL/min (90-130) L 05/01/23 03:56 Glucose 98 mg/dL (65-115) 05/01/23 03:56 Calculated Osmolality 283 mOsm/kg (285-295) L 05/01/23 03:56 Calcium 9.3 mg/dL (8.5-10.5) 05/01/23 03:56 Total Bilirubin 0.3 mg/dL (0.15-1.2) 05/01/23 03:56 AST 15 U/L (0-32) 05/01/23 03:56 ALT 19 U/L (0-33) 05/01/23 03:56 Alkaline Phosphatase 98 U/L (35-105) 05/01/23 03:56 Total Protein 7.3 g/dL (6.6-8.7) 05/01/23 03:56 Albumin 4.2 g/dL (3.5-5.2) 05/01/23 03:56 Globulin 3.1 g/dL (1.3-4.6) 05/01/23 03:56 Lipase 17 U/L (13-60) 05/01/23 03:56 Ser , Semi-Qnt 1084.00 mIU/mL 05/01/23 03:56 Urine Color Yellow (Yellow) 05/01/23 04:05 Urine Appearance Clear (CLEAR) 05/01/23 04:05 Urine pH 5 (5-7) 05/01/23 04:05 Ur Specific [place] 1.020 (1.005-1.030) 05/01/23 04:05 Urine Protein Neg (Negative) 05/01/23 04:05 Urine Glucose (UA) Norm (Normal) 05/01/23 04:05 Urine Ketones Negative (Negative) 05/01/23 04:05 Urine Blood 3+ (Negative) H 05/01/23 04:05 Urine Nitrate Negative (Negative) 05/01/23 04:05 Urine Bilirubin Neg (Negative) 05/01/23 04:05 Urine Urobilinogen Neg mg/dL (Negative) 05/01/23 04:05 Ur Leukocyte Esterase Negative (Negative) 05/01/23 04:05 Urine RBC 5-10 /hpf (0-2) H 05/01/23 04:05 Urine WBC 0-4 /hpf (0-5) H 05/01/23 04:05 Ur Squamous Epith Cells 0-4 /hpf (0-5) H 05/01/23 04:05 Amorphous Sediment Not Reportable 05/01/23 04:05 Urine Bacteria Trace /hpf (NONE) 05/01/23 04:05 Urine Mucus 2+ /hpf 05/01/23 04:05 Blood Type O Positive 05/01/23 03:56 Rho(D) Type Positive 05/01/23 03:56 Antibody Screen Negative 05/01/23 03:56 All radiology interpretation(s) finalized by discharge Discharge Plan Discharge Patient Disposition: Home Clinical Impression: Antepartum bleeding, first trimester Condition: Stable Prescriptions: No Action No Known Home Medications Discharge Orders: Discharge ED (Routine); Ordered 05/01/23 Ordered By: Ramone Garza Referrals: Britta Newell MD [Primary Care Provider] - Discharge Diet: Usual diet Discharge Activity: Increase activity as tolerated Patient Instructions: Opioid Safety, Pain Management Activity Restrictions/Additional Instructions: Follow-up with your director learning within the next 48 to 72 hours. If you cannot see your director learning you should follow-up with your primary care doctor's office. If there is marked worsening of abdominal pain or bleeding reevaluate in the emergency room. Stand Alone Forms: Work/School Release Sign Out Sign Out Data: Patient Sign Out occurred on 05/01/23 at 06:01. Patient's care was discussed, and care was transferred from to Ramone Garza DO. Coding Level of Care Code ED Charge Authorizer for Chg Fwd Documented by User: Ramone Garza DO 05/01/23 08:44 HPI - Abdominal Pain General: Chief Complaint: Abdominal Pain Stated Complaint: ABD PAIN Time Seen by Provider: 05/01/23 03:52 PFSH ED PFSH: Surgical History History of 2020- Family History Grandmother Breast cancer maternal Heart disease maternal Stroke maternal Mother Diabetes Heart disease Hypertension Other Psychiatric illness Denies family history of Colon cancer Ovarian cancer Hypercholesteremia Uterine cancer Thyroid disease Social History Substance/Drug Use: current Substance/Drug use frequency: Special occassions/opportunity only Course Vital Signs: Vital signs: Vital Signs Temperature 98.4 F 05/01/23 03:47 Pulse Rate 91 05/01/23 07:13 Respiratory Rate 16 05/01/23 07:13 Blood Pressure 100/58 05/01/23 07:13 Pulse Oximetry 98 05/01/23 07:13 Oxygen Delivery Me thod Room Air 05/01/23 03:47 MDM - Abdominal Pain Medical Decision Making * Care assumed at change of shift. No intrauterine gestational sac noted. Beta-hCG less than 1500, but is still climbing based on what the patient related to us. Follow-up with her primary director learning within the next 48 to 72 hours. Patient states she usually sees a Dr. Enriquez in [place]. Encouraged her to call him this morning to arrange for follow-up towards the end of the week. Reviewed with her that with a beta-hCG less than 1500 cannot confirm or exclude what is primarily going on. She will need a repeat ultrasound at a later date and should have her beta-hCG is followed. Her hemoglobin at this time is stable. Expressed to her the importance of having definitive follow-up. If she is not able to get in and see her dredge hand she should return to the local ER to have it rechecked or her primary care doctor's office. Lab Data 05/01/23 03:56 05/01/23 03:56 Labs/Radiology: Radiology Impressions Pelvic/Transvag US 05/01/23 04:31 IMPRESSION: 1. No visible intrauterine gestation. 2. Cannot exclude ectopic at this time. 3. Short interval follow-up indicated. 4. Negative for ovarian torsion. Laboratory Results WBC 11.23 10^3/uL (3.29-11.43) 05/01/23 03:56 RBC 4.48 10^6/uL (3.85-5.65) 05/01/23 03:56 Hgb 11.80 g/dL (11.27-16.99) 05/01/23 03:56 Hct 37.7 % (36-47) 05/01/23 03:56 MCV 84.2 fl (85-98) L 05/01/23 03:56 MCH 26.3 pg (27-33) L 05/01/23 03:56 MCHC 31.3 g/dL (30-55) 05/01/23 03:56 RDW 15.3 % (12.1-15.1) H 05/01/23 03:56 Plt Count 242 10^3/cmm (157-399) 05/01/23 03:56 MPV 10.3 fL (7.4-10.4) 05/01/23 03:56 Neut % (Auto) 67.0 % 05/01/23 03:56 Lymph % (Auto) 25.2 % 05/01/23 03:56 [place] % (Auto) 5.7 % 05/01/23 03:56 Eos % (Auto) 1.3 % 05/01/23 03:56 Baso % (Auto) 0.4 % 05/01/23 03:56 Neut # (Auto) 7.52 10^3/uL (1.8-7.7) 05/01/23 03:56 Lymph # (Auto) 2.8 10^3/uL (0.8-4.8) 05/01/23 03:56 [place] # (Auto) 0.6 10^3/uL (0.2-0.9) 05/01/23 03:56 Eos # (Auto) 0.2 10^3/uL (0.0-0.8) 05/01/23 03:56 Baso # (Auto) 0.1 10^3/uL (0.0-0.1) 05/01/23 03:56 Nucleated RBC % (auto) 0 % 05/01/23 03:56 Nucleated RBCs # 0.0 /100WBC 05/01/23 03:56 Sodium 137 mmol/L (136-145) 05/01/23 03:56 Potassium 3.8 mmol/L (3.5-5.1) 05/01/23 03:56 Chloride 103 mmol/L (98-107) 05/01/23 03:56 Carbon Dioxide 25 mmol/L (22-29) 05/01/23 03:56 Anion Gap 12.8 (5-19) 05/01/23 03:56 BUN 9 mg/dL (6-20) 05/01/23 03:56 Creatinine 0.8 mg/dL (0.5-0.9) 05/01/23 03:56 GFR Calculation 86.0 mL/min (90-130) L 05/01/23 03:56 Glucose 98 mg/dL (65-115) 05/01/23 03:56 Calculated Osmolality 283 mOsm/kg (285-295) L 05/01/23 03:56 Calcium 9.3 mg/dL (8.5-10.5) 05/01/23 03:56 Total Bilirubin 0.3 mg/dL (0.15-1.2) 05/01/23 03:56 AST 15 U/L (0-32) 05/01/23 03:56 ALT 19 U/L (0-33) 05/01/23 03:56 Alkaline Phosphatase 98 U/L (35-105) 05/01/23 03:56 Total Protein 7.3 g/dL (6.6-8.7) 05/01/23 03:56 Albumin 4.2 g/dL (3.5-5.2) 05/01/23 03:56 Globulin 3.1 g/dL (1.3-4.6) 05/01/23 03:56 Lipase 17 U/L (13-60) 05/01/23 03:56 Ser , Semi-Qnt 1084.00 mIU/mL 05/01/23 03:56 Urine Color Yellow (Yellow) 05/01/23 04:05 Urine Appearance Clear (CLEAR) 05/01/23 04:05 Urine pH 5 (5-7) 05/01/23 04:05 Ur Specific [place] 1.020 (1.005-1.030) 05/01/23 04:05 Urine Protein Neg (Negative) 05/01/23 04:05 Urine Glucose (UA) Norm (Normal) 05/01/23 04:05 Urine Ketones Negative (Negative) 05/01/23 04:05 Urine Blood 3+ (Negative) H 05/01/23 04:05 Urine Nitrate Negative (Negative) 05/01/23 04:05 Urine Bilirubin Neg (Negative) 05/01/23 04:05 Urine Urobilinogen Neg mg/dL (Negative) 05/01/23 04:05 Ur Leukocyte Esterase Negative (Negative) 05/01/23 04:05 Urine RBC 5-10 /hpf (0-2) H 05/01/23 04:05 Urine WBC 0-4 /hpf (0-5) H 05/01/23 04:05 Ur Squamous Epith Cells 0-4 /hpf (0-5) H 05/01/23 04:05 Amorphous Sediment Not Reportable 05/01/23 04:05 Urine Bacteria Trace /hpf (NONE) 05/01/23 04:05 Urine Mucus 2+ /hpf 05/01/23 04:05 Blood Type O Positive 05/01/23 03:56 Rho(D) Type Positive 05/01/23 03:56 Antibody Screen Negative 05/01/23 03:56 Discharge Plan Discharge Patient Disposition: Home Clinical Impression: Antepartum bleeding, first trimester Condition: Stable Prescriptions: No Action No Known Home Medications Discharge Orders: Discharge ED (Routine); Ordered 05/01/23 Ordered By: Ramone Garza Referrals: Britta Newell MD [Primary Care Provider] - Discharge Diet: Usual diet Discharge Activity: Increase activity as tolerated Patient Instructions: Opioid Safety, Pain Management Activity Restrictions/Additional Instructions: Follow-up with your director learning within the next 48 to 72 hours. If you cannot see your director learning you should follow-up with your primary care doctor's office. If there is marked worsening of abdominal pain or bleeding reevaluate in the emergency room. Stand Alone Forms: Work/School Release Sign Out Sign Out Data: Patient Sign Out occurred on 05/01/23 at 06:01. Patient's care was discussed, and care was transferred from to Ramone Garza DO. Coding Level of Care Code ED Charge Authorizer for Fredrickg Maria Guadalupe
[2023-05-01 04:26] LABS: Add Urine Microscopic? YES; Bilirubin Urine Neg (Negative); Blood Urine 3+ (Negative); Glucose Urine UA Norm (Normal); Ketones Urine Negative (Negative); Leukocyte Esterase Urine Negative (Negative); Nitrate Urine Negative (Negative); Protein Urine Neg (Negative); Urine Appearance Clear (CLEAR); Urine Color Yellow (Yellow); Urobilinogen Urine Neg (Negative); pH Urine 5 (5-7)
[2023-05-01 04:27] LABS: Add Urine Culture? No; Bacteria Urine TRACE /hpf; Mucus Urine 2+ /hpf; Squamous Epithelial Cell Urine 0-4 /hpf (0-5); WBC Urine 0-4 /hpf (0-5)
--- NOTE | 2023-05-01 04:31 | USR_ITS ---
PROCEDURE INFORMATION: Exam: US Pelvis Complete, Transabdominal and US Pelvis, Transvaginal and US Duplex Artery and Vein, Ovaries, Complete Exam date and time: 05/01/2023 4:49 AM Age: 27 years old Clinical indication: Lmp or gestational age (in weeks): 7w 0d by gsac measurements, but likely is just blood filled endometrium. Retained products cannot be excluded. Antepartum complications; ; Prior surgery; Surgery date: 6+ months; Surgery type: Csection; Patient HX: Heavy vaginal bleeding x 1 week; Additional info: Vaginal bleeding, cramping, pain LABS AND CLINICAL REPORTS: Serum Choriogonadotropin (HCG): 1084 mIU/mL Last menstrual period start date: 02/25/2023 TECHNIQUE: Imaging protocol: Real-time complete transabdominal and transvaginal pelvic ultrasound with image documentation. Transvaginal imaging was used for better evaluation of the endometrium, adnexa, and/or cervix. Real-time duplex ultrasound scan of the arterial and venous flow of the ovaries with B-mode, color Doppler flow and spectral waveform analysis. Duplex exam was performed to evaluate for torsion and other vascular conditions. COMPARISON: CT abdomen pelvis w con* [id number] 05/05/2022 7:00 AM FINDINGS: GESTATION: Gestation: No visible intrauterine gestation. Uterus: Uterus measures 8.1 cm x 5.2 cm x 4.4 cm. No focal mass. Prominent heterogeneous endometrial complex measures 13 mm. Right ovary/adnexa: Right ovary measures 2.7 cm x 1.8 cm x 2.5 cm. Right ovarian volume is 6.1 mL. Normal vascularity. Unremarkable arterial and venous spectral Doppler waveforms. Left ovary/adnexa: Left ovary measures 3.2 cm x 2.5 cm x 3.2 cm. Left ovarian volume is 13.2 mL. Normal internal vascularity. Unremarkable arterial and venous spectral Doppler waveforms. Intraperitoneal space: No intraperitoneal fluid. Urinary bladder: Normal. US/US pelv w/transvag [id number] IMPRESSION: 1. No visible intrauterine gestation. 2. Cannot exclude ectopic at this time. 3. Short interval follow-up indicated. 4. Negative for ovarian torsion.
[2023-05-01 04:37] LABS: Alanine Aminotransferase 19 U/L (0-33); Albumin Level 4.2 g/dL (3.5-5.2); Alkaline Phosphatase 98 U/L (35-105); Anion Gap 12.8 (5-19); Aspartate Amino Transferase 15 U/L (0-32); Blood Urea Nitrogen 9 mg/dL (6-20); Calcium 9.3 mg/dL (8.5-10.5); Carbon Dioxide 25 mmol/L (22-29); Chloride 103 mmol/L (98-107); Globulin 3.1 g/dL (1.3-4.6); Glucose 98 mg/dL (65-115); Lipase 17 U/L (13-60); Osmolality Calculated 283 mOsm/kg (285-295); Potassium 3.8 mmol/L (3.5-5.1); Sodium 137 mmol/L (136-145); Total Bilirubin 0.3 mg/dL (0.15-1.2); Total Protein 7.3 g/dL (6.6-8.7)
[2023-05-01 06:57] VITALS: BP 100/58; PULSE 91; RESP 16; O2SAT 100
[2023-05-01 07:13] VITALS: BP 100/58; PULSE 91; RESP 16; O2SAT 98
== END 2023-05-01 07:15 | disposition home or self-care (01) ==
PROVIDERS: Emergency Medicine; Emergency Provider Family Medicine; PCP Family Medicine
DX: O20.9 Hemorrhage in early pregnancy, unspecified (principal); Z3A.00 Weeks of gestation of pregnancy not specified
CPT/HCPCS: 76815; 76830; 76856; 80053; 81001; 83690; 84702; 85025; 86850; 86900; 99284

== ENCOUNTER → 2023-06-11 14:21 | Outpatient (BNVA) | payer MEDICAID, SELFPAY | PROVIDERS: PCP Family Medicine; Visit Provider Nurse Practitioner Family | DX: R07.9 Chest pain, unspecified (principal) | CPT/HCPCS: 93005 ==

== ENCOUNTER 2023-07-05 14:46 | Outpatient (CLI) | payer MEDICAID, SELFPAY ==
--- NOTE | 2023-07-05 15:00 | USR_ITS ---
PROCEDURE INFORMATION: Exam: US Soft Tissue Head and Neck, Soft Tissue Exam date and time: 07/05/2023 3:27 PM Age: 27 years old Clinical indication: Neck pain; Additional info: M54.2 - cervicalgia TECHNIQUE: Imaging protocol: Real-time ultrasound scan of the head and neck with image documentation. Exam focused on the soft tissue in the region of clinical concern. COMPARISON: No relevant prior studies available. FINDINGS: Lymph nodes: No lymphadenopathy. Soft tissues: Unremarkable. No fluid collections or solid masses in the interrogated bilateral neck, to include portions of the thyroid and submandibular glands. US/US soft tissue head neck [id number] IMPRESSION: Unremarkable soft tissues of the visualized head and neck.
== END 2023-07-05 14:47 | disposition home or self-care (01) ==
LOC: RAD 14:46
PROVIDERS: PCP Family Medicine; Visit Provider Nurse Practitioner Family
DX: M54.2 Cervicalgia (principal)
CPT/HCPCS: 76536

== ENCOUNTER → 2023-07-21 15:30 | Outpatient (BNVA) | payer MEDICAID, SELFPAY | PROVIDERS: PCP Family Medicine; Visit Provider Emergency Medicine | DX: J02.9 Acute pharyngitis, unspecified (principal); B34.9 Viral infection, unspecified | CPT/HCPCS: 87071; 87400; 87426; 87880 ==